=== PATIENT | male | born 1970 | race Caucasian/White ===

== ENCOUNTER 2016-08-07 21:05 | Inpatient (IN) | payer MEDICARE, OTHER, MEDICAID ==
[2016-08-07] MEDS ORDERED: NS 0.9% IV ONE (21:20)
[2016-08-07] MEDS ORDERED: Piperac/Tazob 3.375 gm in NS* 3.375 GM/100 ML BAG IVPB ONE (21:22)
[2016-08-07 21:24] LABS: Hematocrit 52 % (42-52); Hemoglobin 16.7 g/dl (14.0-18.0); Mean Corpuscular HGB Conc 32 g/dl (31-36); Mean Corpuscular Hemoglobin 30 pg (27-31); Mean Corpuscular Volume 93 fL (80-94); Mean Platelet Volume 10 um3 (7.4-10.4); Red Blood Count 5.62 10^6/ul (4.0-5.4); Red Cell Distribution Width 13 % (10.5-15); White Blood Count 20.6 10^3/ul (3.5-10.8)
[2016-08-07 21:25] LABS: Add Diff/Slide Review? Slide Review Added; Comments Flag Yes
[2016-08-07] MEDS ORDERED: Morphine INJ* 4 MG/ML 1 ML CARPUJECT IV ONE ×3 (21:26→23:50)
[2016-08-07] MEDS ORDERED: Acetaminophen SUPP* 650 MG SUPP PR ONE (21:28)
[2016-08-07 21:41] LABS: Albumin 4.8 g/dL (3.2-5.2); BUN/Creatinine Ratio 25.3 (8-20); Calcium 9.9 mg/dL (8.6-10.3); EGFR African American 115.9 (>60); EGFR Non-African American 90.1 (>60); Globulin 3.7 g/dL (2-4); Potassium 4.8 mmol/L (3.5-5.0); Total Bilirubin 0.5 mg/dL (0.2-1.0); Total Protein 8.5 g/dL (6.4-8.9)
[2016-08-07 21:42] LABS: Troponin I 0.01 ng/mL (<0.04)
[2016-08-07 21:48] LABS: Immature Granulocytes 9 % (0-9); Metamyelocytes % 2 % (0-2); Neutrophil % 78 % (38-83); RBC Morphology Normal (Normal); Reactive Lymph % 4 % (0-6)
[2016-08-07 21:49] LABS: Platelet Morphology Large
[2016-08-07] MEDS ORDERED: Ondansetron INJ* 2 MG/ML VIAL IV ONE (21:51)
--- NOTE | 2016-08-07 22:15 | RAD ---
Indication: Shortness of breath. Single frontal view of the chest performed at 2150 hours was reviewed. Comparison is made with previous exam dated December 23, 2015. Elevated right hemidiaphragm is noted. Lung red are clear. Overall no changes noted since prior exam. IMPRESSION: NO ACTIVE CARDIOPULMONARY DISEASE IS NOTED. ELEVATED RIGHT HEMIDIAPHRAGM IS NOTED.
[2016-08-07 22:21] LABS: Carbamazepine 15.9 mcg/mL (4.0-12.0)
[2016-08-07] MEDS: Morphine INJ* 4 MG/ML 1 ML CARPUJECT IV PRN ×2 (22:22→23:53)
[2016-08-07] MEDS ORDERED: Morphine INJ* 4 MG/ML 1 ML CARPUJECT ONE (22:23)
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
[2016-08-07] MEDS ORDERED: Morphine INJ* 2 MG/ML 1 ML CARPUJECT IV PRN (22:37)
[2016-08-07] MEDS ORDERED: Albuterol 2.5 MG/3 ML NEB.SOL* (0.083%) INH ONE (22:50)
[2016-08-07] MEDS ORDERED: Albuterol/Ipratropium NEB.SOL* Albuterol 2.5 MG/Ipratropium 0.5 MG 3 ML INH ONE (22:50)
[2016-08-07] MEDS ORDERED: GuaiFENesin DM* 5 ML UDC PO PRN (22:59)
[2016-08-07] MEDS ORDERED: Saline NASAL SPRAY 0.65%* BTL BOTH NARES PRN (22:59)
[2016-08-07] MEDS ORDERED: Diazepam (ANTICONVULSANT)(*) 10 MG RECTAL.GEL PR PRN (22:59)
[2016-08-07] MEDS ORDERED: BACITRACIN ZINC TOPICAL PRN (22:59)
[2016-08-07] MEDS ORDERED: Acetaminophen TAB* 325 MG PO PRN (23:06)
[2016-08-07] MEDS ORDERED: NS 0.9% 1000 ML* 1,000 ML IV SCH (23:15)
[2016-08-07] MEDS ORDERED: Morphine PCA ADULT* 5 MG/ML 30 ML PCA SCH (23:45)
[2016-08-08] MEDS ORDERED: Vancomycin(*) 1,000 MG in NS 0.9% 250 ML* 250 ML IVPB ONE ×2
[2016-08-08] MEDS ORDERED: Vancomycin per Pharmacy* NOTE FOLLOW UP PRN (00:01)
[2016-08-08] MEDS ORDERED: Metoprolol Tartrate IV* 1 MG/ML 5 ML VIAL IV PRN (00:48)
[2016-08-08] MEDS ORDERED: Metoprolol Tartrate IV* 1 MG/ML 5 ML VIAL ONE (00:54)
[2016-08-08] MEDS ORDERED: Morphine PCA ADULT* 5 MG/ML 30 ML PCA SCH ×3 (00:57→06:56)
[2016-08-08] MEDS ORDERED: HYDROmorphone INJ* 2 MG/ML CARPUJECT SYRINGE IV SLOW PU ONE (01:05)
[2016-08-08] MEDS ORDERED: LORazepam INJ* 2 MG/ML 1 ML VIAL IV PUSH ONE (01:05)
[2016-08-08] MEDS ORDERED: Atropine 1% (ORAL/SL)* 15 ML BTL SL PRN (01:07)
[2016-08-08] MEDS ORDERED: LORazepam INJ* 2 MG/ML 1 ML VIAL ONE (01:13)
[2016-08-08] MEDS ORDERED: HYDROmorphone INJ* 2 MG/ML CARPUJECT SYRINGE ONE (01:19)
[2016-08-08] MEDS ORDERED: Acetaminophen IV 1GM/100ML * 1,000 MG in PREMIX* 0 ML IVPB ONE (01:35)
[2016-08-08] MEDS ORDERED: NS 0.9% 1000 ML* 1,000 ML IV ONE (01:37)
[2016-08-08] MEDS ORDERED: Piperac/Tazob 3.375 gm in NS* 3.375 GM/100 ML BAG IVPB SCH (01:45)
[2016-08-08] MEDS ORDERED: Acetaminophen IV 1GM/100ML * 100 ML ONE (01:54)
[2016-08-08 04:47] LABS: Budding Yeast Present (Absent); Urine Bacteria 1+ (Absent); Urine Bilirubin Negative (Negative); Urine Glucose 1+(50 mg/dL) (Negative); Urine Nitrite Negative (Negative)
[2016-08-08] MEDS ORDERED: Heparin VIAL(*) 5000 UNITS/ML VIAL (FIVE THOUSAND) SUBCUT SCH (06:00)
[2016-08-08] MEDS ORDERED: Dexlansoprazole (NF) 30 MG CAP PO SCH (07:00)
--- NOTE | 2016-08-08 08:02 | PN ---
Progress Note - Progress Note Note: Note tegretol level is high. Placed on hold.
[2016-08-08] MEDS ORDERED: SODIUM FLUORIDE PO SCH (09:00)
[2016-08-08] MEDS ORDERED: Calcium Carbonate TAB* 1250 MG (CALCIUM 500 MG) PO SCH (09:00)
[2016-08-08] MEDS ORDERED: carBAMazepine TAB(*) 200 MG PO SCH ×2 (09:00→16:00)
[2016-08-08] MEDS ORDERED: Ascorbic Acid TAB* 500 MG PO SCH (09:00)
[2016-08-08] MEDS ORDERED: lamoTRIgine TAB(*) 25 MG PO SCH (09:00)
[2016-08-08] MEDS ORDERED: Docusate CAP* 100 MG PO SCH (09:00)
[2016-08-08] MEDS ORDERED: Chlorhexidine MOUTHWASH 0.12%* 15 ML UDC SWISH SPIT SCH (09:00)
[2016-08-08] MEDS ORDERED: Cholecalciferol TAB* 400 UNIT PO SCH (09:00)
[2016-08-08] MEDS ORDERED: Baclofen TAB* 20 MG PO SCH (09:00)
[2016-08-08] MEDS ORDERED: NUTRITIONAL SUPPLEMENTS PO SCH (09:00)
[2016-08-08] MEDS ORDERED: Acetaminop/Codeine 30 MG TAB* 1 TAB (300 MG/30 MG) PO SCH (09:00)
[2016-08-08] MEDS ORDERED: Polyethylene Glycol 3350* 17 GM PACKET PO SCH (09:00)
[2016-08-08] MEDS ORDERED: lamoTRIgine TAB(*) 100 MG PO SCH (09:00)
[2016-08-08] MEDS ORDERED: Fluticasone NASAL SPRAY 50MCG* 16 gm SPRAY BTL BOTH NARES SCH (09:00)
[2016-08-08] MEDS ORDERED: Folic Acid TAB* 1 MG PO SCH (09:00)
[2016-08-08 09:08] VITALS: BP 92/74
[2016-08-08] MEDS ORDERED: Morphine INJ* 4 MG/ML 1 ML CARPUJECT ONE (09:33)
[2016-08-08] MEDS ORDERED: Morphine INJ* 10 MG/ML 1 ML CARPUJECT IV ONE (09:50)
--- NOTE | 2016-08-08 11:29 | DS ---
CRITICAL CARE MEDICINE DISCHARGE SUMMARY ADMISSION DATE: 08/07/2016 ICU ADMISSION DATE: 08/08/2016 ICU DISCHARGE DATE: 08/08/2016 REFERRING PHYSICIAN: Dr. Herrera. DIAGNOSIS: 1. Acute hypoxic respiratory failure. 2. Aspiration pneumonitis. 3. Strep pneumoniae pneumonia. 4. Mental retardation. MEDICATIONS AT DISCHARGE: None. ALLERGIES: None. HOSPITAL COURSE: 45 year old male admitted with respiratory distress after witnesses keely aspiration. Positive strept antigen on admission as well with significant airspace disease on chest x-ray. Placed on antibiotics and high flow O2 and admitted to ICU. Known DNR/DNI and family wishing for him to have opportunity if able but not to suffer. Do to work of breathing patient placed on morphine drip and more comfortable but status failing quickly. Comfort alone instilled with family at bedside and patient quickly. DISPOSITION: . Parag Anaya DO
[2016-08-08] MEDS ORDERED: Vancomycin(*) 1,000 MG in NS 0.9% 250 ML* 250 ML IVPB SCH (13:00)
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
--- NOTE | 2016-08-08 16:45 | PN ---
Progress Note - Progress Note Note: CRITICAL CARE MEDICINE PROGRESS NOTE Patient seen at 930 at request of nursing. Family at bedside. Patient clearly agonal and dying. Explained such to family. Pt actively dying and give morphine for comfort. Family agrees. Parag Anaya, DO
[2016-08-09] MEDS ORDERED: Vancomycin Trough Check NOTE FOLLOW UP ONE (13:00)
== END 2016-08-08 09:34 | disposition expired | DRG 189 ==
LOC: ED 21:05 → ICU 23:50
PROVIDERS: ADMIT Internal Medicine; ATTEND Internal Medicine Critical Care Medicine
DX: J96.01 Acute respiratory failure with hypoxia (principal); J69.0 Pneumonitis due to inhalation of food and vomit; G82.50 Quadriplegia, unspecified; J13 Pneumonia due to Streptococcus pneumoniae; F79 Unspecified intellectual disabilities; Z66 Do not resuscitate; Z87.820 Personal history of traumatic brain injury; G31.9 Degenerative disease of nervous system, unspecified; M41.9 Scoliosis, unspecified; M81.0 Age-related osteoporosis without current pathological fracture; G40.909 Epilepsy, unspecified, not intractable, without status epilepticus; K59.00 Constipation, unspecified; J30.9 Allergic rhinitis, unspecified; K21.9 Gastro-esophageal reflux disease without esophagitis; Z79.1 Long term (current) use of non-steroidal anti-inflammatories (NSAID); Z79.899 Other long term (current) drug therapy
CPT/HCPCS: 36415; 71010; 80053; 80156; 80175; 81003; 81015; 83605; 84484; 85025; 85610; 85730; 87040; 87077; 87086; 87205; 87502; 87641; 87899; 93005; 94640; 94660; 94760; 96374; 99285; A9270-GY; J1170; J2060; J2270; J2405; J2543; J3370; J3490